=== PATIENT | female | born 1955 | race Caucasian/White ===

== ENCOUNTER 2016-07-10 11:55 | Emergency (ER) | payer BC, OTHER ==
[2016-07-10 13:27] VITALS: BP 125/66
--- NOTE | 2016-07-10 13:54 | UC ---
Skin Complaint HPI - HPI Summary HPI Summary: Patient comes today because she noticed a tick on her R leg behind the knee in the shower this morning. She states that it was not there when she went to bed last night. Her friends helped to remove the tick, but was only able to remove the body. The "head" is still intact. She denies any rash, body aches, fever or recent illness. - History of Current Complaint Time Seen by Provider: 07/10/16 13:11 Stated Complaint: SKIN COMPLAINT Skin Exposure Onset/Duration: Hours Ago - States that she noticed tick in shower this morning and could not have been on her for more than 14 hours before removing. Only was able to remove the body, and the head is still intact. Onset Severity: Mild Current Severity: None Pain Intensity: 0 Pain Scale Used: 0-10 Numeric - No pain Aggravating: Nothing Alleviating: Nothing Associated Signs & Symptoms: Positive: Negative Related History: Insect Bite/Sting - Tick bite - Allergy/Home Medications Allergies/Adverse Reactions: Allergies Allergy/AdvReac Type Severity Reaction Status Date / Time Morphine Allergy Hives Verified 07/10/16 13:28 Penicillins Allergy Swelling Verified 07/10/16 13:28 Of Face,Lips,& Throat Sulfa Antibiotics Allergy See Comment Verified 07/10/16 13:28 Azithromycin [From Zithromax] AdvReac GI Upset Verified 07/10/16 13:28 Oxycodone [From Percocet] AdvReac Vomiting Verified 07/10/16 13:28 seasonal Allergy Eyes Uncoded 07/10/16 13:28 Itchy/Swollen/Red/Watery Home Medications: Home Medications Vaginal Hormone Cream 1 applic VAGINAL SEE INSTRUCTIONS 07/10/16 [History Confirmed 07/10/16] Xildra 50 mg PO BID 07/10/16 [History Confirmed 07/10/16] Review of Systems Constitutional: Negative Skin: Other - Tick bite Eyes: Negative ENT: Negative Respiratory: Negative Cardiovascular: Negative Gastrointestinal: Negative Genitourinary: Negative Motor: Negative Neurovascular: Negative Musculoskeletal: Negative Neurological: Negative Psychological: Negative All Other Systems Reviewed And Are Negative: Yes PMH/Surg Hx/FS Hx/Imm Hx Respiratory History Of: Reports: Asthma - r/t allergies Psychological History Of: Reports: Anxiety - Surgical History Surgical History: Yes Surgery Procedure, Year, and Place: Hernia's x2. Breast Bx; 06/03/16 Ganglion cyst from right hand. Rotator cuff repair. Knee surgery. Vein surgery,. Tonsillectomy - Family History Known Family History: Positive: Other - hemophilia and dementia. - Social History Occupation: Employed Full-time Lives: With Family Alcohol Use: Rare Substance Use Type: None Smoking Status (MU): Never Smoked Tobacco Have You Smoked in the Last Year: No - Immunization History Hx Tetanus, Diphtheria Vaccination: No Vaccination Up to Date: No Physical Exam Triage Information Reviewed: Yes Appearance: Well-Appearing, No Pain Distress, Well-Nourished Vital Signs: Initial Vital Signs Temp 99.8 F 07/10/16 13:15 Pulse 75 07/10/16 13:15 Resp 22 07/10/16 13:15 BP 143/74 07/10/16 13:15 Pulse Ox 99 07/10/16 13:15 Vital Signs Reviewed: Yes Eye Exam: Normal Eyes: Positive: Conjunctiva Clear ENT Exam: Normal ENT: Positive: Normal ENT inspection, Hearing grossly normal, Pharynx normal, TMs normal Dental Exam: Normal Neck exam: Normal Respiratory Exam: Normal Respiratory: Positive: Chest non-tender, Lungs clear, Normal breath sounds, No respiratory distress, No accessory muscle use Cardiovascular Exam: Normal Cardiovascular: Positive: RRR, No Murmur Musculoskeletal Exam: Normal Neurological Exam: Normal Psychological Exam: Normal Skin Exam: Other - Tick bite behind right knee. Head is still intact with small , bloody drainage. No erythema or rash associated. Skin: Positive: significant lesion(s), Other - Small tick head intact behind right knee, partially removed via splinter forceps on exam, pt kyrie well.. Negative: rashes Course/Dx - Diagnoses Provider Diagnoses: tick bite. partial tick removal Discharge - Discharge Plan Condition: Stable Disposition: HOME Referrals: Dash Petty MD [Primary Care Provider] - If Needed Additional Instructions: TICK BITE: You have been bitten by a tick. Once the tick is removed, these "bites" usually cause no problems. Tick fever, tick paralysis, [place]end Spotted fever, and Lyme disease are uncommon -- but you should mention this tick bite to your doctor if you develop unusual symptoms in the next several weeks. If you develop any of the following, please see your physician promptly: (1) Fever, chills, or generalized malaise associated with a headache. (2) A red round area at the site of the bite (or elsewhere) (3) Joint pain, joint swelling or generalized weakness. (4) Redness, swelling, or drainage at the site of the bite. Check yourself, your children and your pets for ticks whenever you've been in an area where ticks live. To remove a tick, grasp it firmly with some tweezers or a string in a slipknot as close to its head as possible and pull it steadily. Ticks do not have a typical "head" attached to their body. There are mouth parts sticking out which they use to feed. If there are mouth parts left behind in the wound there is NO increased risk of Lyme infection; however, the chances of a bacterial skin infection (cellulitis) are higher. If mouth parts remain after tick removal, the best thing to do is apply warm soaks to the area 3-4 times per day to encourage the skin to expel the foreign material. FOLLOW-UP CARE: You should contact your private physician for follow-up care if you develop spreading redness near the site of the bite or on any other areas of the body. If you are unable to get a timely appointment, or if you are worsening, call us or return for re-evaluation.
== END 2016-07-10 14:09 | disposition home or self-care (01) ==
LOC: UCCORT 11:55
DX: S80.861A Insect bite (nonvenomous), right lower leg, initial encounter (principal); W57.XXXA Bitten or stung by nonvenomous insect and other nonvenomous arthropods, initial encounter; Y93.9 Activity, unspecified; Y92.9 Unspecified place or not applicable; Z88.5 Allergy status to narcotic agent; Z88.1 Allergy status to other antibiotic agents; Z88.0 Allergy status to penicillin; Z88.2 Allergy status to sulfonamides
CPT/HCPCS: 99211; G0463

== ENCOUNTER 2016-07-26 07:17 | Emergency (ER) | payer BC, OTHER ==
[2016-07-26 07:49] VITALS: BP 118/66
--- NOTE | 2016-07-26 08:02 | UC ---
Complaint Female HPI - HPI Summary HPI Summary: VAGINAL REDNESS, ITCHY AND SWELLING X 2 DAYS + FREQUENT HX OF VAGINAL YEASE + DYSURIA , NO FEVER, NO CHILLS - History Of Current Complaint Chief Complaint: UCGU Stated Complaint: PERSONAL Time Seen by Provider: 07/26/16 07:18 Hx Obtained From: Patient ?: No Onset/Duration: Gradual Onset, Lasting Days - 2, Still Present Timing: Constant Severity Initially: Moderate Severity Currently: Moderate Character: Burning Aggravating Factor(s): Urination Alleviating Factor(s): Nothing Associated Signs And Symptoms: Positive: Vaginal Discharge, Genital Swelling. Negative: Fever, Back Pain, Vaginal Bleeding/Discharge, Nausea, Vomiting(# Of Episodes =), Genital Blisters, Retained Foregin Body (Specify) - Allergies/Home Medications Allergies/Adverse Reactions: Allergies Allergy/AdvReac Type Severity Reaction Status Date / Time Morphine Allergy Hives Verified 07/26/16 07:36 Penicillins Allergy Swelling Verified 07/26/16 07:36 Of Face,Lips,& Throat Sulfa Antibiotics Allergy See Comment Verified 07/26/16 07:36 Azithromycin [From Zithromax] AdvReac GI Upset Verified 07/26/16 07:36 Oxycodone [From Percocet] AdvReac Vomiting Verified 07/26/16 07:36 seasonal Allergy Eyes Uncoded 07/26/16 07:36 Itchy/Swollen/Red/Watery PMH/Surg Hx/FS Hx/Imm Hx Respiratory History Of: Reports: Asthma - r/t allergies Psychological History Of: Reports: Anxiety - Surgical History Surgical History: Yes Surgery Procedure, Year, and Place: Hernia's x2. Breast Bx; 06/03/16 Ganglion cyst from right hand. Rotator cuff repair. Knee surgery. Vein surgery,. Tonsillectomy - Family History Known Family History: Positive: Other - hemophilia and dementia. - Social History Alcohol Use: Rare Substance Use Type: None Smoking Status (MU): Never Smoked Tobacco Have You Smoked in the Last Year: No - Immunization History Hx Tetanus, Diphtheria Vaccination: No Vaccination Up to Date: No Review of Systems Constitutional: Negative Skin: Negative Eyes: Negative ENT: Negative Respiratory: Negative Cardiovascular: Negative Genitourinary: Dysuria All Other Systems Reviewed And Are Negative: Yes Physical Exam Triage Information Reviewed: Yes Appearance: Well-Appearing, No Pain Distress, Well-Nourished Vital Signs: Initial Vital Signs Temp 98.5 F 07/26/16 07:23 Pulse 82 07/26/16 07:23 Resp 18 07/26/16 07:23 BP 118/66 07/26/16 07:23 Vital Signs Reviewed: Yes Eyes: Positive: Conjunctiva Clear ENT: Positive: Normal ENT inspection, Hearing grossly normal, Pharynx normal Neck exam: Normal Neck: Positive: Supple, Nontender, No Lymphadenopathy Respiratory: Positive: Chest non-tender, Lungs clear, Normal breath sounds Cardiovascular: Positive: RRR, No Murmur, Pulses Normal Abdominal Exam: Normal Abdomen Description: Positive: Nontender. Negative: CVA Tenderness (R), CVA Tenderness (L), Distended, Guarding Bowel Sounds: Positive: Present Skin Exam: Normal UC Physical Exam Vital Signs On Initial Exam: Initial Vitals Temp Pulse Resp BP 98.5 F 82 18 118/66 07/26/16 07:23 07/26/16 07:23 07/26/16 07:23 07/26/16 07:23 - Genitalia Exam Female Genitourinary: Other - PELVIC EXAM WAS DEFFERED Complaint Female Dx - Differential Dx/Diagnosis Provider Diagnoses: VAGINITIS Discharge - Discharge Plan Condition: Stable Disposition: HOME Prescriptions: Clotrimazole 1% VAGINAL CREAM* [Gyne-Lotrimin 1% VAGINAL CREAM*] 1 applic VAGINAL BEDTIME #1 tube Fluconazole 150 MG (NF) [Diflucan 150 mg (NF)] 150 mg PO ONCE #2 tab Patient Education Materials: Vulvovaginal Candidiasis (ED) Referrals: Dash Petty MD [Primary Care Provider] - 7 Days
== END 2016-07-26 08:06 | disposition home or self-care (01) ==
LOC: UCCORT 07:17
DX: N76.0 Acute vaginitis (principal); Z88.5 Allergy status to narcotic agent; Z88.0 Allergy status to penicillin; Z88.2 Allergy status to sulfonamides
CPT/HCPCS: 81003; 99212; G0463

== ENCOUNTER 2016-12-18 09:26 | Emergency (ER) | payer BC, OTHER ==
[2016-12-18] MEDS ORDERED: BSS OPTH.SOL* BTL ONE (09:46)
[2016-12-18] MEDS ORDERED: Fluorescein Sodium TOPICAL* 1 MG TEST ONE (09:46)
[2016-12-18] MEDS ORDERED: Tetracaine 0.5% OPTH.SOL 4 ML* 1 DROP BTL ONE (09:46)
[2016-12-18 09:50] VITALS: BP 107/68
--- NOTE | 2016-12-18 10:06 | UC ---
Eye Complaint HPI - HPI Summary HPI Summary: Treated several months ago by Dr. Maier with topical gel for diagnosis of opthalmic zoster. Had no rash at that time, nor fever or systemic symptoms. Resolved with a week of treatment. Yesterday developed similar symptoms with sharp eye pain and mild photophobia. Acuity is not affected with 20/13 vision. No associated headache or rash. - History of Current Complaint Chief Complaint: UCEye Stated Complaint: LEFT EYE PAIN Time Seen by Provider: 12/18/16 09:55 Hx Obtained From: Patient Onset/Duration: Gradual Onset, Lasting Days - 2 Timing: Constant Severity Initially: Moderate Severity Currently: Moderate Character: Sharp Aggravating Factor(s): Light Alleviating Factor(s): Darkness Associated Signs And Symptoms: Positive: Photophobia Related History: Diagnosed As: - opthalmic zoster - Risk Factors Penetrating Injury Risk Factor: Negative Globe Rupture Risk Factors: Negative Acute Glaucoma Risk Factors: Negative Optic Artery Occlusion Risk Factors: Negative - Allergies/Home Medications Allergies/Adverse Reactions: Allergies Allergy/AdvReac Type Severity Reaction Status Date / Time Morphine Allergy Hives Verified 12/18/16 09:34 Penicillins Allergy Swelling Verified 12/18/16 09:34 Of Face,Lips,& Throat Sulfa Antibiotics Allergy See Comment Verified 12/18/16 09:34 Azithromycin [From Zithromax] AdvReac GI Upset Verified 12/18/16 09:34 Oxycodone [From Percocet] AdvReac Vomiting Verified 12/18/16 09:34 seasonal Allergy Eyes Uncoded 12/18/16 09:34 Itchy/Swollen/Red/Watery Home Medications: Home Medications Aminocaproic Acid TAB* [Amicar TAB*] 1,000 mg PO SEE INSTRUCTIONS PRN 12/18/16 [ History Confirmed 12/18/16] Calcium W/ Vitamins D & K [Viactiv 500-500-40 mg-Unt-Mcg] 2 chw PO BEDTIME 12/18 [History Confirmed 12/18/16] Conjugated Estrogens VAG CM* [Premarin VAG CREAM*] 1 applic VAGINAL WE 12/18/16 [History Confirmed 12/18/16] Esomeprazole(NF) [NexIUM(NF)] 40 mg PO QAM 12/18/16 [History Confirmed 12/18/16] LevoCETirizine TAB (NF) [Xyzal TAB (NF)] 5 mg PO BEDTIME 12/18/16 [History Confirmed 12/18/16] Lifitegrast [Xiidra] 1 drop BOTH EYES BID 12/18/16 [History Confirmed 12/18/16] Lubiprostone 24 MCG CAP (NF) [Amitiza (NF)] 24 mcg PO BID 12/18/16 [History Confirmed 12/18/16] Montelukast Sodium TAB* [Singulair TAB*] 10 mg PO BEDTIME 12/18/16 [History Confirmed 12/18/16] Topiramate TAB(*) [Topamax 25 MG tab] 25 mg PO QAM 12/18/16 [History Confirmed 12/18/16] buPROPion TAB* [Wellbutrin TAB*] 150 mg PO QAM 12/18/16 [History Confirmed 12/18] PMH/Surg Hx/FS Hx/Imm Hx - Additional Past Medical History Additional PMH: history of occipital neuralgia Previously Healthy: Yes GI/ History: Gastroesophageal Reflux - Surgical History Surgical History: Yes Surgery Procedure, Year, and Place: Hernia's x2. Breast Bx; 06/03/16 Ganglion cyst from right hand. Rotator cuff repair. Knee surgery. Vein surgery,. Tonsillectomy - Family History Known Family History: Positive: Other - hemophilia and dementia. 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 Lives: With Family Alcohol Use: Rare Substance Use Type: None Smoking Status (MU): Never Smoked Tobacco Have You Smoked in the Last Year: No - Immunization History Hx Tetanus, Diphtheria Vaccination: No Vaccination Up to Date: No Review of Systems Constitutional: Negative Skin: Negative Eyes: Eye Redness, Photophobia ENT: Negative Respiratory: Negative Cardiovascular: Negative Gastrointestinal: Negative Genitourinary: Negative Motor: Negative Neurovascular: Negative Musculoskeletal: Negative Neurological: Negative Psychological: Negative All Other Systems Reviewed And Are Negative: Yes Physical Exam Triage Information Reviewed: Yes Appearance: Well-Appearing, Pain Distress - mild to moderate Vital Signs: Initial Vital Signs Temp 97.5 F 12/18/16 09:29 Pulse 68 12/18/16 09:29 Resp 16 12/18/16 09:29 BP 107/68 12/18/16 09:29 Pulse Ox 99 12/18/16 09:29 Eyes: Positive: Conjunctiva Inflamed - mild injection on the left. ISREAL. + photophobic on the left, but the pupil reacts well. No central injection. Full EOM. Lids normal., Other: - No fluoroscein uptake. ENT: Positive: Pharynx normal Dental Exam: Normal Neck: Positive: Supple, Nontender, No Lymphadenopathy Respiratory: Positive: Lungs clear, Normal breath sounds Cardiovascular: Positive: RRR, No Murmur Musculoskeletal Exam: Normal Neurological Exam: Normal Neurological: Positive: Alert Psychological Exam: Normal Skin Exam: Normal Eye Complaint Course/Dx - Course Course Of Treatment: antiviral gel given. Follow up with Dr. Maier tomorrow. - Differential Dx/Diagnosis Differential Diagnosis/HQI/PQRI: Corneal Abrasion, Foreign Body, Uveitis Provider Diagnoses: viral keratitis Discharge - Discharge Plan Condition: Stable Disposition: HOME Prescriptions: Ganciclovir OPHTH 0.15%(NF) [Zirgan(NF)] 0.15 % OP TID #1 gel Referrals: Dash Petty MD [Primary Care Provider] - Artis Maier OD [Doctor of Osteopathy] - Additional Instructions: Begin ganciclovir gel today as directed. It is very important that you have an assessment by Dr. Maier tomorrow or Monday--please call his office to arrange.
== END 2016-12-18 10:47 | disposition home or self-care (01) ==
LOC: UCCORT 09:26
DX: H16.8 Other keratitis (principal); K21.9 Gastro-esophageal reflux disease without esophagitis; Z88.5 Allergy status to narcotic agent; Z88.3 Allergy status to other anti-infective agents; Z88.0 Allergy status to penicillin; Z88.2 Allergy status to sulfonamides
CPT/HCPCS: 99212; A9270-GY; G0463

== ENCOUNTER → 2018-03-14 | Emergency (ER) | payer BC, OTHER ==
[~2018-03-14] MED LIST: Meclizine TAB* 12.5 MG PO ONE; NS 0.9% 1000 ML* 1,000 ML IV ONE
--- OUTSIDE RECORDS SUMMARY | 2018-03-14 13:20 | XMS REPORT ---
:1955 External Reference #:[id number] Author Organization [facility] Address [address] [address] Phone [phone] Care Team Providers Name Role Phone Dash Petty MD Care Team Information Plate Embosser Unavailable Payers Type Date Identification Numbers Payment Provider Subscriber Commercial Effective: Policy Number: [id number] [facility] Commercial Arpan Hogan 2017 PayID: [id number] [address] [address] [place] [phone] Medigap Part B Effective: 2017 Policy Number: [facility] Commercial Tyler Hogan [id number] PayID: [id number] [address] [address] [place] [phone] Problems Date Description Provider Status Onset: 12/26/2013 Allergic rhinitis Dash Petty MD Active Onset: 12/26/2013 Constipation Dash Petty MD Active Onset: 05/16/2013 H/O: coagulation defect Dash Petty MD Active Onset: 12/25/2012 Pure hypercholesterolemia Dash Petty MD Active Onset: 12/24/2012 FH: Diabetes mellitus Dash Petty MD Active Onset: 12/24/2012 Peptic reflux disease Dash Petty MD Active Onset: 12/08/2012 Irritable bowel syndrome Dash Petty MD Active Onset: 12/08/2012 Headache Dash Petty MD Active Onset: 11/12/2012 Anxiety state Latricia Quinn PA Active Onset: 12/19/2004 Family history of malignant neoplasm Anderson Ann MD Active of breast Onset: 12/19/2004 Allergic rhinitis due to pollen Active Onset: 12/29/2014 H/O: blood disorder Dash Petty MD Active Onset: 12/31/2015 Mild persistent asthma Dash Petty MD Active Onset: 12/31/2015 Trigeminal neuralgia Dash Petty MD Active Family History Date Family Member(s) Problem(s) Comments Children 2 Social History Type Date Description Comments Marital Status Occupation Teacher ETOH Use Denies alcohol use Smoking Patient has never smoked Exercise Type/Frequency Exercises regularly Allergies, Adverse Reactions, Alerts Date Description Reaction Status Severity Comments 05/21/2012 Penicillin active hives 08/11/2009 Morphine active 12/21/2004 Erythromycin active hives Medications Medication Date Status Form Strength Qnty SIG Indications Ordering Provider Albuterol 07/26/ Active Nebulizer 0.63mg/3ML 75ml use one R05 Digiovanna Sulfate 2018 vial in Dash nebulizer every 3 hours as needed for shortness of breath or wheezing Xyzal Allergy 01/06/ Active Tablets 5mg 30tabs 1 by mouth J30.9 Digiovanna 24HR 2016 every day Dash MD Premarin 10/09/ Active Cream 0.625mg/GM 30unit apply to N95.2 Simms, 2015 s affected Rickey, area 2-3x a DO week as needed Bupropion HCL 01/01/ Active Tablets 75mg 180tab take 2 F41.1 Digiovanna 2013 s tablets by Dash mouth every MD morning Montelukast / Active Tablets 10mg 30tabs 1 by mouth J45.30 Clarita, Sodium 0000 every night MD Cara at bedtime J30.9 Topiramate Active Tablets 25mg 1 by mouth once a R51 Bonifacio Mcgarry MD day G50.0 Combivent Active Aerosol 20-100mcg/Act 1 J45.30 Clarita, Respimat Inhalation MD Cara qid prn Cough/SOB Xiidra Active Solution 5% 1 drop in Unknown each eye twice a day Doxycycline Active Capsules 100mg 1 by mouth Unknown Hyclate twice a day Mupirocin Active Ointment 2% apply to Unknown affected area twice a day Dexilant Active Capsules 60mg [address] every day Nystatin 07/31/2017 Hx Suspension 629895Opfe/ML 2 5cc swish K12.1 Digiovanna, - 0 and swallow Sandy, 08/10/2017 0 four times SURVEY COORDINATOR m a day for l 10 days Benzonatate 07/24/2017 Hx Capsules 200mg 3 1 pill by R05 Jovanny, - 0 mouth 3 MD Dash 02/18/2018 c times a day a as needed p for cough s (swallow whole) Prednisone 07/22/2017 Hx Tablets 10mg 2 6 pills by J45.31 Jonathan, - 1 mouth x 1 MD Parris 07/31/2017 t dose today, a then b decrease s dose by 1 pill daily until gone. Doxycycline 07/22/2017 Hx Capsules 100mg 2 1 by mouth J45.31 Jonathan Hyclate - 0 twice daily MD Parris 07/31/2017 c x 10 days a p s Estrace 11/24/2016 Hx Cream 0.1mg/GM 4 Apply twice N95.2 Digiovanna, - 2 a week as MD Dash W/Applicator 07/21/2017 . instructed 5 0 0 g m Famciclovir 09/07/2016 Hx Tablets 500mg 2 take one Digiovanna, - 1 tablet by MD Dash 09/14/2016 t mouth three a times a day b for 7 days s Zostavax 12/31/2015 Hx Solution 32306Gha/0.65M 1 1 dose Digiovanna, - Rec L u MD Dash 01/10/2016 n i t s Diflucan 10/25/2014 Hx Tablets 150mg 1 1 by mouth 616.10 Rick, - t now Leo, 12/22/2014 a DO b s Doxycycline 09/13/2014 Hx Tablets 100mg 2 1 po bid x 461.9 Digiovanrenae, Hyclate - 0 10 days MD Dash 09/23/2014 t (w/ food a but not b milk) s Proair HFA 09/13/2014 Hx Aerosol 108(90Base) 1 2 puffs 466.0 Digiovanna , - mcg/Act u every 3 MD Dash 12/29/2014 n hours as i needed for t wheezing/SO s B Premarin 10/31/2012 Hx Cream 0.625mg/GM 4 apply to Simms, - 2 affected Rickey, DO 09/13/2014 . area twice 5 a week 0 0 G Ketoconazole 06/14/2011 Hx Shampoo 2% 1 use daily Digiovanna, - u as directed Dash Stacy 07/21/2017 n MD i t s Nexium Hx Packet 20mg 1 po qd K21.0 Aspen, Audi Valdovinos MD 07/21/2017 Levocetirizin Hx Tablets 5mg 1 PO qd J30.9 deja Otto - MD Cara Dihydrochlori 01/06/2017 de Montelukast Hx Tablets 10mg take 1 Clarita, Sodium - tablet by MD Cara 12/29/2014 mouth at bedtime Ketorolac Hx Solution 0.5% 1 drop OU Unknown Tromethamine - tid 01/06/2017 Sirgany Olopatadine Hx Solution 0.6% 1 - 2 Drops Clarita, HCL - To Each Eye MD Cara 12/29/2014 bid as Needed Amitiza Hx Capsules 24mcg take [address] Huntley capsule Mera 10/17/2017 twice a day Nii w/ food Meloxicam Hx Tablets 7.5mg take 1 or 2 M79.644 Lizabeth - tablets by David 01/06/2017 mouth once M.D. a day as needed for arthritis with food Proair HFA Hx Aerosol 108(90Base) 2 puffs J45.30 Clarita, - mcg/Act every 3 h MD Cara 07/21/2017 as needed for sob Symbicort Hx Aerosol 80-4.5mcg/Act use 2 puffs J45.30 Clarita, - twice a day MD Cara 07/31/2017 during spring and fall allergy seasons - rinse mouth after use. Immunizations CPT Code Status Date Vaccine Reaction Lot # Q2035 Given 01/30/2018 Afluria Imunization [facility] Q2035 Given 06/05/2017 Afluria Imunization 00272 Given 12/31/2015 Zoster (Zostavax) 11863 Given 01/06/2014 Afluria Or Fluvirin Flu Vac Intramuscular 77509 Given 01/06/2014 Afluria Or Fluvirin Flu Vac Intramuscular 99334 Given 05/16/2013 Afluria Or Fluvirin Flu Vac Intramuscular 64257 Given 12/24/2012 Tdap (Adacel) Ages 7 And Above Only 21373 Given 03/28/2003 Afluria Or Fluvirin Flu Vac Intramuscular 83598 Given 05/23/2002 Immunization Td 7 Yrs Or Older Q2035 Refused 01/24/2018 Afluria Imunization WILL GET AT PHARMACY Vital Signs Date Vital Result Comment 02/19/2018 Weight 148.00 lb Heart Rate 84 /min BP Systolic 128 mmHg BP Diastolic 82 mmHg Height 66.5 inches 5'6.50" BMI (Body Mass Index) 23.5 kg/m2 01/24/2018 Weight 149.00 lb Heart Rate 72 /min BP Systolic 120 mmHg BP Diastolic 80 mmHg Respiratory Rate 18 /min Height 66.5 inches 5'6.50" BMI (Body Mass Index) 23.7 kg/m2 10/17/2017 Weight 149.00 lb Heart Rate 72 /min BP Systolic 120 mmHg BP Diastolic 76 mmHg Respiratory Rate 18 /min Height 66.5 inches 5'6.50" BMI (Body Mass Index) 23.7 kg/m2 07/31/2017 Body Temperature 98.3 F Weight 146.00 lb Heart Rate 74 /min BP Systolic 118 mmHg BP Diastolic 62 mmHg Respiratory Rate 18 /min Height 66.5 inches 5'6.50" BMI (Body Mass Index) 23.2 kg/m2 07/24/2017 Body Temperature 99.0 F Weight 150.00 lb Heart Rate 84 /min BP Systolic 120 mmHg BP Diastolic 80 mmHg Respiratory Rate 18 /min Height 66.5 inches 5'6.50" O2 % BldC Oximetry 96 % Ra BMI (Body Mass Index) 23.8 kg/m2 07/22/2017 Body Temperature 98.8 F Weight 149.00 lb Heart Rate 86 /min BP Systolic 120 mmHg BP Diastolic 74 mmHg Respiratory Rate 18 /min Height 66.5 inches 5'6.50" O2 % BldC Oximetry 98 % ra BMI (Body Mass Index) 23.7 kg/m2 02/20/2017 Weight 150.00 lb Heart Rate 72 /min BP Systolic 124 mmHg BP Diastolic 74 mmHg Respiratory Rate 18 /min Height 66.5 inches 5'6.50" BMI (Body Mass Index) 23.8 kg/m2 01/06/2017 Weight 149.00 lb Heart Rate 72 /min BP Systolic 120 mmHg BP Diastolic 72 mmHg Respiratory Rate 18 /min Height 66.5 inches 5'6.50" BMI (Body Mass Index) 23.7 kg/m2 08/01/2016 Body Temperature 99.1 F Weight 148.00 lb Heart Rate 74 /min BP Systolic 122 mmHg BP Diastolic 74 mmHg Respiratory Rate 18 /min Height 66 inches 5'6" BMI (Body Mass Index) 23.9 kg/m2 04/06/2016 Weight 143.00 lb Heart Rate 74 /min BP Systolic 120 mmHg BP Diastolic 80 mmHg Respiratory Rate 18 /min Height 66 inches 5'6" BMI (Body Mass Index) 23.1 kg/m2 12/31/2015 Weight 145.00 lb Heart Rate 72 /min BP Systolic 120 mmHg BP Diastolic 72 mmHg Respiratory Rate 18 /min Height 66 inches 5'6" BMI (Body Mass Index) 23.4 kg/m2 12/25/2015 Weight 145.00 lb Heart Rate 71 /min BP Systolic 134 mmHg BP Diastolic 80 mmHg Respiratory Rate 18 /min Height 66.25 inches 5'6.25" (12/2015) BMI (Body Mass Index) 23.2 kg/m2 12/29/2014 Weight 151.00 lb Heart Rate 72 /min BP Systolic 118 mmHg BP Diastolic 64 mmHg Respiratory Rate 18 /min Height 66 inches 5'6" (12/2014) BMI (Body Mass Index) 24.4 kg/m2 12/22/2014 Weight 150.00 lb Heart Rate 72 /min BP Systolic 126 mmHg BP Diastolic 72 mmHg Respiratory Rate 18 /min Height 66.25 inches 5'6.25" 10/25/14 BMI (Body Mass Index) 24.0 kg/m2 10/25/2014 Weight 153.00 lb Heart Rate 76 /min BP Systolic 138 mmHg BP Diastolic 80 mmHg Respiratory Rate 18 /min Height 66.25 inches 10/25/14 BMI (Body Mass Index) 24.5 kg/m2 09/13/2014 Body Temperature 98.8 F Weight 153.12 lb Heart Rate 85 /min BP Systolic 128 mmHg BP Diastolic 74 mmHg Respiratory Rate 18 /min Height 66.25 inches 5'6.25" O2 % BldC Oximetry 99 % Ra BMI (Body Mass Index) 24.5 kg/m2 03/11/2014 Weight 152.00 lb Heart Rate 76 /min BP Systolic 118 mmHg BP Diastolic 80 mmHg Respiratory Rate 18 /min Height 66.25 inches 5'6.25" 8-201312/26/2013 Weight 152.00 lb 8-8 Heart Rate 76 /min BP Systolic 116 mmHg L/Reg BP Diastolic 84 mmHg L/Reg Respiratory Rate 16 /min Height 66.25 inches 5'6.25" 8-201312/20/2013 Weight 152.00 lb PRPT Heart Rate 72 /min BP Systolic 122 mmHg BP Diastolic 72 mmHg Respiratory Rate 18 /min Height 66 inches 5'6" 05/16/2013 Weight 152.00 lb Heart Rate 80 /min BP Systolic 126 mmHg BP Diastolic 78 mmHg Respiratory Rate 18 /min 04/01/2013 Heart Rate 76 /min BP Systolic 132 mmHg BP Diastolic 88 mmHg Respiratory Rate 18 /min 12/24/2012 Weight 150.38 lb Down 2# Heart Rate 74 /min BP Systolic 128 mmHg L/Reg BP Diastolic 88 mmHg L/Reg Respiratory Rate 17 /min Height 66 inches 5'6" 11/12/2012 Weight 152.00 lb Down 10# Heart Rate 68 /min BP Systolic 120 mmHg BP Diastolic 68 mmHg Respiratory Rate 18 /min Results Test Date Test Result H/L Range Note Manual Differential 02/15/2018 Neutrophils 68 % 35-75 1 Band 0 % 0-11 1 Lymphocytes 20 % 16-52 1 Monocytes 7 % 0-8 1 Eosinophils 2 % 0-5 1 Basophils 2 % 0-4 1 Metamyelocyte 1 % High 0-0 1 Abs Neutrophils# 3.8 K/ul 1.8-7.7 1 Abs Lymphocytes# 1.1 K/ul Low 1.2-4.8 1 Abs Monocytes# 0.4 K/ul 0.0-0.8 1 Abs Eosinophils# 0.1 K/ul 0.0-0.5 1 Abs Basophils# 0.1 K/ul 0.0-0.3 1 Abs BandCells# 0.0 K/ul 0.0-1.2 1 Abs Metamyelocytes# 0.1 K/ul High 0.0-0.0 1 Giant Platelets PRESENT None Seen 1 CBC with Auto Diff-fcmg 02/15/2018 WBC 5.6 K/uL 4.1-11.0 1 RBC 4.63 M/uL 4.00-5.40 1 Hemoglobin 13.3 gm/dL 12.0-16.0 1 Hematocrit 39.7 % 36.0-47.0 1 MCV 85.7 fL 80.0-97.0 1 MCH 28.7 pg 27.0-32.0 1 MCHC 33.5 g/dL 32.0-36.0 1 RDW 13.1 % 11.5-14.5 1 PLT Count 143 K/ul 140-400 1 MPV 10.6 FL 7.1-10.7 1 Basic (BMP) 02/15/2018 Sodium 142 mmol/L 135-146 1, 2 Potassium 4.0 mmol/L 3.5-5.2 1 Chloride# 105 mmol/L 97-110 1, 3 Carbon Dioxide 29 mmol/L 24-34 1 Glucose 98 mg/dL 70-105 1 BUN 19 mg/dL 6-26 1 Creatinine 0.8 mg/dL 0.5-1.4 1 Calcium 9.7 mg/dL 8.5-10.2 1 Non Nu Egfr >60 >60 1, 4 Nu Egfr >60 >60 1, 5 Anion Gap 8 mmol/L 5-15 1, 6 Laboratory test finding 02/15/2018 Vitamin B12 299 pg/mL 180-914 1 Vitamin D 25 Hydroxy 37 ng/mL 30-100 1, 7 Magnesium 2.2 mg/dL 1.5-2.7 1 Lipid Treatment 02/15/2018 Cholesterol 210 mg/dL High 50-199 1 Triglycerides 58 mg/dL 30-200 1 HDL 71 mg/dL 35-85 1, 8 Chol/ HDL Ratio 2.9 ratio Low 3.7-5.6 1 VLDL 12 mg/dL 2-29 1 LDL (Calc) 127 mg/dL High 20-99 1, 9 Alt 20 U/L 3-42 1 Ast 18 U/L 8-42 1 CBC with Auto Diff-fcmg 01/01/2018 WBC 6.7 K/uL 4.1-11.0 10 RBC 4.54 M/uL 4.00-5.40 10 Hemoglobin 13.0 gm/dL 12.0-16.0 10 Hematocrit 38.8 % 36.0-47.0 10 MCV 85.5 fL 80.0-97.0 10 MCH 28.7 pg 27.0-32.0 10 MCHC 33.5 g/dL 32.0-36.0 10 RDW 13.4 % 11.5-14.5 10 PLT Count 122 K/ul Low 140-400 10 MPV 11.2 FL High 7.1-10.7 10 Neutrophil 71.3 % 35.0-75.0 10 Lymphocyte 19.7 % 16.0-52.0 10 Monocyte 7.4 % 2.0-10.0 10 Eosinophil 0.9 % 0.0-5.0 10 Basophil 0.7 % 0.0-4.0 10 Abs Neutrophils 4.8 K/uL 2.1-8.0 10 Abs Lymphocytes 1.3 K/uL 0.8-5.5 10 Abs Monocytes 0.5 K/uL 0.1-1.0 10 Abs Eosinophils 0.1 K/uL 0.0-0.5 10 Abs Basophils 0.1 K/uL 0.0-0.3 10 Lipid Treatment 01/06/2017 Cholesterol 206 mg/dL High 50-199 11 Triglycerides 79 mg/dL 30-200 11 HDL 68 mg/dL 35-85 11, 12 Chol/ HDL Ratio 3.0 ratio Low 3.7-5.6 11 VLDL 16 mg/dL 2-29 11 LDL (Calc) 122 mg/dL High 20-99 11, 13 Alt 12 U/L 3-42 11 Ast 13 U/L 8-42 11 CBC With Auto Diff 01/06/2017 WBC 6.2 K/uL 4.1-11.0 11 RBC 4.50 M/uL 4.00-5.40 11 Hemoglobin 12.9 gm/dL 12.0-16.0 11 Hematocrit 39.6 % 36.0-47.0 11 MCV 87.9 fL 80.0-97.0 11 MCH 28.7 pg 27.0-32.0 11 MCHC 32.6 g/dL 32.0-36.0 11 RDW 13.3 % 11.5-14.5 11 PLT Count 121 K/ul Low 140-400 11 Neutrophil 65.9 % 35.0-75.0 11 Lymphocyte 23.4 % 16.0-52.0 11 Monocyte 7.6 % 2.0-10.0 11 Eosinophil 2.2 % 0.0-5.0 11 Basophil 0.9 % 0.0-4.0 11 Abs Neutrophils 4.1 K/uL 2.1-8.0 11 Abs Lymphocytes 1.5 K/uL 0.8-5.5 11 Abs Monocytes 0.5 K/uL 0.1-1.0 11 Abs Eosinophils 0.1 K/uL 0.0-0.5 11 Abs Basophils 0.1 K/uL 0.0-0.3 11 Basic (BMP) 01/06/2017 Sodium 142 mmol/L 135-146 11, 14 Potassium 4.4 mmol/L 3.5-5.2 11 Chloride# 104 mmol/L 97-110 11, 15 Carbon Dioxide 29 mmol/L 24-34 11 Glucose 82 mg/dL 70-105 11 BUN 23 mg/dL 6-26 11 Creatinine 0.9 mg/dL 0.5-1.4 11 Calcium 9.6 mg/dL 8.5-10.2 11 Non Nu Egfr >60 >60 11, 16 Nu Egfr >60 >60 11, 17 Anion Gap 9 mmol/L 7-16 11, 18 Laboratory test finding 01/06/2017 Magnesium 2.2 mg/dL 1.5-2.7 11 Vitamin B12 252 pg/mL 180-914 11 TSH 2.50 uIU/mL 0.35-4.94 11 Affirm 08/01/2016 Trichomonas Vaginalis Negative Negative Gardnerella Vaginalis Negative Negative Qiana Species Negative Negative Laboratory test finding 08/01/2016 Urine Culture Microbiology res <SEE 19 NOTE> Lipid 12/31/2015 Cholesterol 186 mg/dL 50-199 Triglycerides 58 mg/dL 30-200 HDL 62 mg/dL 35-85 20 Chol/ HDL Ratio 3.0 ratio Low 3.7-5.6 VLDL 12 mg/dL 2-29 LDL (Calc) 112 mg/dL High 20-99 21 CBC With Auto Diff 12/31/2015 WBC 6.2 K/uL 4.1-11.0 RBC 4.44 M/uL 4.00-5.40 Hemoglobin 12.8 gm/dL 12.0-16.0 Hematocrit 38.8 % 36.0-47.0 MCV 87.4 fL 80.0-97.0 MCH 28.9 pg 27.0-32.0 MCHC 33.0 g/dL 32.0-36.0 RDW 13.1 % 11.5-14.5 PLT Count 129 K/ul Low 140-400 Neutrophil 67.6 % 35.0-75.0 Lymphocyte 21.7 % 16.0-52.0 Monocyte 8.1 % 2.0-10.0 Eosinophil 1.5 % 0.0-5.0 Basophil 1.1 % 0.0-4.0 Abs Neutrophils 4.2 K/uL 2.1-8.0 Abs Lymphocytes 1.3 K/uL 0.8-5.5 Abs Monocytes 0.5 K/uL 0.1-1.0 Abs Eosinophils 0.1 K/uL 0.0-0.5 Abs Basophils 0.1 K/uL 0.0-0.3 Basic (BMP) 12/31/2015 Sodium 137 mmol/L 134-142 Potassium 4.1 mmol/L 3.5-5.2 Chloride 106 mmol/L 97-109 Carbon Dioxide 28 mmol/L 24-34 Glucose 94 mg/dL 70-105 BUN 24 mg/dL 6-26 Creatinine 0.8 mg/dL 0.5-1.4 Calcium 9.4 mg/dL 8.5-10.2 Anion Gap 7 mmol/L 6-14 Non Nu Egfr >60 >60 22 Nu Egfr >60 >60 23 Laboratory test finding 12/31/2015 TSH 1.91 uIU/mL 0.35-4.94 Laboratory test finding 12/25/2015 Pap Smear Thin Prep SEE NOTE 24, 25 Laboratory test finding 12/29/2014 Vit D,25 Hydroxy 45 ng/mL 31-100 Lipid Treatment 12/29/2014 Cholesterol 190 mg/dL 50-199 Triglycerides 54 mg/dL 30-200 HDL 54 mg/dL 35-85 26 Chol/ HDL Ratio 3.5 ratio Low 3.7-5.6 VLDL 11 mg/dL 2-29 LDL (Calc) 125 mg/dL High 20-99 27 Alt 12 U/L 3-42 Ast 12 U/L 8-42 Laboratory test finding 12/29/2014 Magnesium 2.1 mg/dL 1.5-2.7 Vitamin B12 480 pg/mL 180-914 Manual Differential 12/29/2014 Neutrophils 64 % 35-75 Lymphocytes 26 % 16-52 Atypical Lymphs 1 0-5 Monocytes 7 % 0-8 Eosinophils 1 % 0-5 Basophils 1 % 0-4 Platelet Estimate Normal Normal RBC Morphology Normal Normal Abs Neutrophils# 4.0 K/ul 1.8-7.7 Abs Lymphocytes# 1.6 K/ul 1.2-4.8 Abs Monocytes# 0.4 K/ul 0.0-0.8 Abs Eosinophils# 0.1 K/ul 0.0-0.5 Abs Basophils# 0.1 K/ul 0.0-0.3 Abs Atypical Lymphocytes# 0.1 K/ul 0.0-0.5 Laboratory test finding 12/29/2014 Hepatitis C Virus NONREACTIVE Nonreactive Antibody Basic (BMP) 12/29/2014 Sodium 138 mmol/L 134-142 Potassium 3.9 mmol/L 3.5-5.2 Chloride 105 mmol/L 97-109 Carbon Dioxide 27 mmol/L 24-34 Glucose 84 mg/dL 70-105 BUN 18 mg/dL 6-26 Creatinine 0.8 mg/dL 0.5-1.4 Calcium 9.2 mg/dL 8.5-10.2 Anion Gap 10 mmol/L 6-14 Non Nu Egfr >60 >60 28 Nu Egfr >60 >60 29 CBC With Auto Diff 12/29/2014 WBC 6.2 K/uL 4.1-11.0 RBC 4.36 M/uL 4.00-5.40 Hemoglobin 12.7 gm/dL 12.0-16.0 Hematocrit 38.3 % 36.0-47.0 MCV 87.8 fL 80.0-97.0 MCH 29.2 pg 27.0-32.0 MCHC 33.3 g/dL 32.0-36.0 RDW 13.2 % 11.5-14.5 PLT Count Platelets clumpe <SEE NOTE> K/ul 140-400 30 Laboratory test finding 03/13/2014 Antinuclear Abs Ifa Negative . 31 Rheumatoid Factor Screen Negative Negative Sedimentation Rate 14 mm/hr 0-30 Lipid Panel 12/27/2013 Chol/HDL Ratio 3.5 ratio Cholesterol 220.0 mg/dL High 50.0-199.0 HDL 62.0 mg/dL 29.0-86.0 LDL, Calculated 140.6 mg/dL High 20.0-129.0 Triglycerides 87.0 mg/dL 30.0-249.0 vLDL 17.4 ng/dL Laboratory test finding 12/27/2013 Alt 15.0 U/L 9.0-52.0 Ast 15.0 U/L 14.0-36.0 BUN 21.0 mg/dL High 7.0-18.0 BUN/Creat Ratio 26.3 ratio High 12.0-20.0 Calcium 9.7 mg/dL 8.7-10.5 Chloride 106.0 mmol/L 98.0-107.0 Co2 27.0 mmol/L 22.0-30.0 Creatinine-Serum 0.8 mg/dL 0.7-1.2 Glucose 80.0 mg/dL 75.0-110.0 Magnesium 2.4 High 1.7-2.3 Potasium 4.2 mmol/L 3.6-5.0 Sodium 143.0 mmil/L 137.0-145.0 eGFR 78.3 Laboratory test finding 12/24/2012 BUN 16.0 mg/dL 7.0-18.0 BUN/Creat Ratio 17.8 ratio 12.0-20.0 Calcium 9.6 mg/dL 8.7-10.5 Chloride 106.0 mmol/L 98.0-107.0 Cholesterol 205.0 mg/dL High 50.0-199.0 Co2 29.0 mmol/L 22.0-30.0 Creatinine-Serum 0.9 mg/dL 0.7-1.2 Glucose 105.0 mg/dL 75.0-110.0 HDL 54.0 mg/dL 29.0-86.0 Potasium 4.0 mmol/L 3.6-5.0 Sodium 141.0 mmil/L 137.0-145.0 eGFR 68.6 Laboratory test finding 12/24/2012 Magnesium 2.1 mg/dL 1.7-2.3 Laboratory test finding 11/12/2012 Cytology Pap See Note 32 1 early 03/01 Giant Platelets Present early 03/01 2 Updated reference range on new analyzer 3 Updated reference range on new analyzer 4 Concerning GFR Guidelines: Normal function or mild renal disease, if clinically at risk: >/=60 mL/min Moderately decreased: 30-59 Severely decreased: 15-29 Renal failure: <15 Glomerular Filtration Rate (GFR) is estimated based on the MDRD equation, which assumes a steady state for creatinine as recommended by the National Kidney Disease Education Program in conjunction with the National Institutes of Health and the National Kidney Foundation. Clinical conditions in which it may be necessary to measure GFR by using clearance methods include extremes of age and body size, severe malnutrition or obesity, diseases of skeletal muscle, paraplegia or quadriplegia, vegetarian diet, rapidly changing kidney function, and calculation of the dose of potentially toxic drugs that are excreted by the kidneys. 5 Concerning GFR Guidelines for Americans: Normal function or mild renal disease, if clinically at risk: >/=60 mL/min Moderately decreased: 30-59 Severely decreased: 15-29 Renal failure: <15 6 Updated Reference Range 7 Clinical Guidelines for recommended serum 25(OH)Vitamin D Deficient at less than 20 ng/mL Insufficient at 20 to <30 ng/mL Sufficient at 30-100 ng/mL Toxicity at greater than 100 ng/mL 8 Per NCEP ATP III Guidelines: Results lower than 40 mg/dL are suggestive of increased risk for coronary artery disease. Results > or=to 60 mg/dL are considered a negative risk factor. 9 Per NCEP ATP III Guidelines: Normal Population <130 Patients with medical conditions: CHD/DM Optimal: <100 Borderline high: 130-159 High: 160-189 Very high: >189 10 OUTSIDE ORDER Fax results to [phone] (FAXED) Fastin hours 11 12/29 12 Per NCEP ATP III Guidelines: Results lower than 40 mg/dL are suggestive of increased risk for coronary artery disease. Results > or=to 60 mg/dL are considered a negative risk factor. 13 Per NCEP ATP III Guidelines: Normal Population <130 Patients with medical conditions: CHD/DM Optimal: <100 Borderline high: 130-159 High: 160-189 Very high: >189 14 Updated reference range on new analyzer 15 Updated reference range on new analyzer 16 Concerning GFR Guidelines: Normal function or mild renal disease, if clinically at risk: >/=60 mL/min Moderately decreased: 30-59 Severely decreased: 15-29 Renal failure: <15 Glomerular Filtration Rate (GFR) is estimated based on the MDRD equation, which assumes a steady state for creatinine as recommended by the National Kidney Disease Education Program in conjunction with the National Institutes of Health and the National Kidney Foundation. Clinical conditions in which it may be necessary to measure GFR by using clearance methods include extremes of age and body size, severe malnutrition or obesity, diseases of skeletal muscle, paraplegia or quadriplegia, vegetarian diet, rapidly changing kidney function, and calculation of the dose of potentially toxic drugs that are excreted by the kidneys. 17 Concerning GFR Guidelines for Americans: Normal function or mild renal disease, if clinically at risk: >/=60 mL/min Moderately decreased: 30-59 Severely decreased: 15-29 Renal failure: <15 18 Updated reference range on new analyzer 19 Microbiology results SOURCE Clean Catch Midstream FINAL RESULT No growth 20 Per NCEP ATP III Guidelines: Results lower than 40 mg/dL are suggestive of increased risk for coronary artery disease. Results > or=to 60 mg/dL are considered a negative risk factor. 21 Per NCEP ATP III Guidelines: Normal Population <130 Patients with medical conditions: CHD/DM Optimal: <100 Borderline high: 130-159 High: 160-189 Very high: >189 22 Concerning GFR Guidelines: Normal function or mild renal disease, if clinically at risk: >/=60 mL/min Moderately decreased: 30-59 Severely decreased: 15-29 Renal failure: <15 Glomerular Filtration Rate (GFR) is estimated based on the MDRD equation, which assumes a steady state for creatinine as recommended by the National Kidney Disease Education Program in conjunction with the National Institutes of Health and the National Kidney Foundation. Clinical conditions in which it may be necessary to measure GFR by using clearance methods include extremes of age and body size, severe malnutrition or obesity, diseases of skeletal muscle, paraplegia or quadriplegia, vegetarian diet, rapidly changing kidney function, and calculation of the dose of potentially toxic drugs that are excreted by the kidneys. 23 Concerning GFR Guidelines for Americans: Normal function or mild renal disease, if clinically at risk: >/=60 mL/min Moderately decreased: 30-59 Severely decreased: 15-29 Renal failure: <15 24 Fastin hours 25 [facility]. [address] [place] [address] CYTOLOGY REPORT Source of Specimen(s): Thin Prep Vaginal / Cervical Pap Smear - One Vial Date of Last Menstrual Period: None Provided Menstrual History: Post-menopausal Other Clinical Conditions: Last Pap Smear: 2013 normal REFLEX TO HPV ASSAY IF RESULTS OF THIS PAP ARE ASCUS Specimen Adequacy Satisfactory for evaluation Presence of endocervical/transformation zone component General Categorization Negative for intraepithelial lesion or malignancy Interpretation NEGATIVE FOR INTRAEPITHELIAL LESION OR MALIGNANCY Reported: 12/29/2015 08:25 Electronically Signed Out By Linsey CHOWDHURY(ASCP) [facility] ICD9 Code: Z01.419 Unless otherwise specified, testing performed by [facility] [address] [place] [id number] 26 Per NCEP ATP III Guidelines: Results lower than 40 mg/dL are suggestive of increased risk for coronary artery disease. Results > or=to 60 mg/dL are considered a negative risk factor. 27 Per NCEP ATP III Guidelines: Normal Population <130 Patients with medical conditions: CHD/DM Optimal: <100 Borderline high: 130-159 High: 160-189 Very high: >189 28 Concerning GFR Guidelines: Normal function or mild renal disease, if clinically at risk: >/=60 mL/min Moderately decreased: 30-59 Severely decreased: 15-29 Renal failure: <15 Glomerular Filtration Rate (GFR) is estimated based on the MDRD equation, which assumes a steady state for creatinine as recommended by the National Kidney Disease Education Program in conjunction with the National Institutes of Health and the National Kidney Foundation. Clinical conditions in which it may be necessary to measure GFR by using clearance methods include extremes of age and body size, severe malnutrition or obesity, diseases of skeletal muscle, paraplegia or quadriplegia, vegetarian diet, rapidly changing kidney function, and calculation of the dose of potentially toxic drugs that are excreted by the kidneys. 29 Concerning GFR Guidelines for Americans: Normal function or mild renal disease, if clinically at risk: >/=60 mL/min Moderately decreased: 30-59 Severely decreased: 15-29 Renal failure: <15 30 Platelets clumped but appear normal in number. 31 Negative <1:80 Borderline 1:80 Positive >1:80 Performed at: RN - [facility] [address] [id number] Garment Sewer Hand: Sima Angela MD, Phone: [phone] [facility] [address] [place] [address], [address] [place] [address] CYTOLOGY REPORT Name: Arpan Hogan Accession # : [id number] : 1955 (Age: 56) Sex: F Location: [facility] Med Rec. # [id number] Date Collected: 11/12/2012 Billing #: [id number] Date Received: 11/12/2012 Alternate #: [id number] Requisition # [id number] Physician(s): LATRICIA SEALS Source of Specimen: ENDOCERVICAL/ECTOCERVICAL THIN PREP Clinical Information: Date of Last Menstrual Period: 2008 Menstrual History: Post menopausal Specimen Adequacy: SATISFACTORY FOR EVALUATION. NO ENDOCERVICAL/TRANSFORMATION ZONE. General Categorization: NEGATIVE FOR INTRAEPITHELIAL LESION OR MALIGNANCY. dcl Electronic Signature TRENTON Keyes (ASCP) Reported: 11/14/[address] [facility] ICD-9 Code(s) V72.31 Procedures Date CPT Code Description Status Comment 11/22/2017 Colonoscopy Completed 2007: RADHA CAZARES, REDO 10 Y - Colonoscopy 11/29: DR GARCIA - RADHA, REDO 10 Y CCD: Endoscopy/Colonoscopy 07/24/2017 31047 Measure Blood Oxygen Level Completed Single Determination 07/22/2017 43798 Measure Blood Oxygen Level Completed Single Determination 02/28/2017 Mammogram Completed 12/27- normal, density C 01/28: NORMAL, DENSITY D Mammography Document: 02/28/17 - Digital Mammography Screening 02/20/2017 42205 Screening Hearing Test Completed 04/28/2016 74646 Bone Density Study (Dexa) Completed Axial Skeleton (Hips,Pelvis,Spine) 04/28/2016 Bone Mineral Density Test Completed 12/30/2014 Mammogram Completed 09/13/2014 26634 Measure Blood Oxygen Level Completed Single Determination 12/20/2013 69691 Mammography Unilateral Completed Encounters Type Date Location Provider CPT E/M Dx Office Visit 01/24/2018 8:15a [place] [address] Z00.00 Z86.2 E78.00 K58.9 J45.30 J30.9 K59.00 Z79.899 D69.6 Office Visit 10/17/2017 8:00a [place] [address] D48.5 M79.671 Office Visit 07/31/2017 10:30a [facility] Sandy Petty, SERGIO [address] K12.1 Office Visit 07/24/2017 3:30p [facility] [place] [address] R05 Office Visit 07/22/2017 9:15a [facility] [place] [address] J45.31 Office Visit 02/20/2017 3:30p [facility] Sandy Petty, SURVEY COORDINATOR 54780 Z01.419 Z12.31 Z68.23 Office Visit 01/06/2017 8:00a [facility] [place] [address] E78.00 K21.0 J30.9 J45.30 K58.9 Z86.2 Z83.3 Z80.3 F41.1 N95.2 R51 Office Visit 08/01/2016 2:00p [facility] Sandy Petty, [place] 13006 N76.0 Office Visit 04/06/2016 10:30a [facility] [place] [address] M67.441 M79.644 Office Visit 12/31/2015 8:30a [facility] [place] [address] E78.0 Z86.2 K21.0 J30.9 J45.30 Z83.3 F41.1 G50.0 M19.049 Office Visit 12/25/2015 10:30a [facility] [place] [address] Z01.419 Z78.0 F43.0 Office Visit 12/29/2014 8:15a [facility] [place] [address] 272.0 564.1 530.11 V12.3 477.9 V73.89 V58.69 V49.81 V18.0 Office Visit 12/22/2014 10:30a [facility] [place] [address] V72.31 627.9 Office Visit 10/25/2014 9:00a [facility] [place] [address] 616.10 Office Visit 09/13/2014 10:45a [facility] Dash Petty MD [id number] 465.9 461.9 466.0 Plan of Care Future Appointment(s):01/25/2019 8:15 am - Dash Petty MD at [facility]2017 - Sandy Petty, SERGIOM25.561 Pain in RIGHT kneeNew Xrays:Knee, Complete,, RTComments:Continue moist heat. Continue to walk with cane to decrease weight bearingIncrease Aleve to 2 twice daily.Will refer to Dr. Connell for further evaluation. Continue use of supportive brace Add Tylenol 1000mg every 4-6 hours as needed for pain.Hold PT exercises for now.Referral:Ryley Izquierdo DR,Follow up:PRN pending ortho evaluation
--- NOTE | 2018-03-14 13:50 | ED ---
Dizziness - HPI Summary HPI Summary: Pt. is a 62 y.o female who presents to the ER for dizziness that started this morning when she awoke. Pt. states she felt like the room was spinning and felt off balance. Pt. initially went to the [facility] and workup was obtained including labs and head ct. Workup unremarkable. ER doctor was concerned with pt.'s ongoing dizziness and referred her [place] [facility] [place]. Pt. states she is feeling a bit better. She denies fever, chills, CP, SOB, abd. pain , V/D, urinary sxs. She does see Dr. Mcgarry for occipital neuralgia. Symptoms are moderate in severity. No current modifying factors. - History Of Current Complaint Chief Complaint: EDDizziness Stated Complaint: VERTIGO Time Seen by Provider: 03/14/18 13:27 Hx Obtained From: Patient - Allergies/Home Medications Allergies/Adverse Reactions: Allergies Allergy/AdvReac Type Severity Reaction Status Date / Time MS Morphine [Morphine] Allergy Hives Verified 12/18/16 09:34 MS Penicillins [Penicillins] Allergy Swelling Verified 12/18/16 09:34 Of Face,Lips,& Throat MS Sulfa Antibiotics Allergy See Comment Verified 12/18/16 09:34 [Sulfa Antibiotics] MS Azithromycin AdvReac GI Upset Verified 12/18/16 09:34 [From Zithromax] MS Oxycodone [From Percocet] AdvReac Vomiting Verified 12/18/16 09:34 seasonal Allergy Eyes Uncoded 12/18/16 09:34 Itchy/Swollen/Red/Watery PMH/Surg Hx/FS Hx/Imm Hx Previously Healthy: Yes Endocrine/Hematology History: Reports: Hx Blood Disorders - brothers are hemophiliacs, 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 Breast Bx; 06/03/16 Ganglion cyst from right hand. Rotator cuff repair. Knee surgery. Vein surgery,. Tonsillectomy Infectious Disease History: No Infectious Disease History: Reports: Hx Shingles Denies: Hx Clostridium Difficile, Hx Hepatitis, Hx Human Immunodeficiency Virus (HIV), Hx of Known/Suspected MRSA, Hx Tuberculosis, Hx Known/Suspected VRE , Hx Known/Suspected VRSA, History Other Infectious Disease, Traveled Outside the [place] in Last 30 Days - Family History Known Family History: Positive: Other - hemophilia and dementia. - Social History Occupation: Employed Full-time Lives: With Family Alcohol Use: Rare Substance Use Type: Reports: None Hx Tobacco Use: No Smoking Status (MU): Never Smoked Tobacco Have You Smoked in the Last Year: No Review of Systems Constitutional: Negative Negative: Fever, Chills Eyes: Negative ENT: Negative Cardiovascular: Negative Respiratory: Negative Gastrointestinal: Negative Genitourinary: Negative Musculoskeletal: Negative Skin: Negative Neurological: Other - dizziness All Other Systems Reviewed And Are Negative: Yes Physical Exam Triage Information Reviewed: Yes Vital Signs On Initial Exam: Initial Vitals Temp Pulse Resp BP Pulse Ox 98.5 F 64 16 129/75 97 03/14/18 12:49 03/14/18 12:49 03/14/18 12:49 03/14/18 12:49 03/14/18 12:49 Vital Signs Reviewed: Yes Appearance: Positive: Well-Appearing - Pt. sitting up in bed in NAD. Very talkative. present. Skin: Positive: Warm, Dry Head/Face: Positive: Normal Head/Face Inspection Eyes: Positive: Normal, EOMI, BRIDGET, Conjunctiva Clear Neck: Positive: Supple, Nontender. Negative: Nuchal Rigidity Respiratory/Lung Sounds: Positive: Clear to Auscultation, Breath Sounds Present Cardiovascular: Positive: Normal, RRR Musculoskeletal: Positive: Normal, Strength/ROM Intact Neurological: Positive: Normal, Sensory/Motor Intact, Alert, Oriented to Person Place, Time, CN Intact II-III, Heel to Toe - normal, Finger to Nose - normal, Facial Symmetry, Speech Normal. Negative: Cerebellar Dysfunction, Disoriented, Facial Droop, Slurred Speech, Pronator Drift Present Diagnostics - Vital Signs Vital Signs Temp Pulse Resp BP Pulse Ox 03/14/18 12:49 98.5 F 64 16 129/75 97 - Laboratory Lab Statement: Any lab studies that have been ordered have been reviewed, and results considered in the medical decision making process. Discharge - Discharge Plan Condition: Good Disposition: HOME Prescriptions: Meclizine TAB* [Antivert 12.5 TAB*] 25 mg PO TID PRN #20 tab PRN Reason: Dizziness Patient Education Materials: Vertigo (ED) Referrals: Dash Petty MD [Primary Care Provider] - Bonifacio Mcgarry MD [Medical Doctor] - Additional Instructions: Call Dr. Mcgarry's office tomorrow for an appointment Meclize as directed Return to ER if symptoms change or worsen - Billing Disposition and Condition Condition: GOOD Disposition: Home
[2018-03-14 18:02] VITALS: BP 118/67
--- NOTE | 2018-03-14 23:22 | CONS ---
NEUROLOGY CONSULTATION NOTE: DATE OF CONSULT: 03/14/18 CONSULTING PROVIDER: BOZENA Bentley REASON FOR CONSULT: Vertigo. CHIEF COMPLAINT: Spinning sensation. HISTORY OF PRESENT ILLNESS: Mrs. Hogan is a 62-year-old female with history of occipital neuralgia for which she takes topiramate, irritable bowel syndrome who presented to [place] for symptoms of vertigo that started today. The patient was in normal state of health last night. She woke up at 5 a.m. and noticed she was staggering when walking. She ran into an armor. She felt extremely off balance and vertiginous. She felt the "world was spinning." This lasted for approximately a few seconds. When sitting down and staring into 1 object and keeping the head in a primary position, the symptoms resolved. However, she tried picking up items off the floor to put in a hamper , she felt dizzy again. This lasted another 10 seconds. She also started walking around the house when she felt slightly dizzy and fell on a nearby furniture. She denied any head trauma. She denies any loss of consciousness. She denied any seizure-like activity. She also is complaining of headaches across the base of the head with slight stiffness around the left shoulder region. She had an upper respiratory illness one week ago where she experienced sore throat for a day but that resolved. She denied any acute hearing loss. She denied tinnitus. The patient has a history of occipital neuralgia and has received occipital nerve blocks in the past with complete resolution of her symptoms. She does complain of an ache around the posterior side of the head that is nonradiating that is currently 3/10 in severity for which she has had in the past. She usually takes an extra dose of Topamax and her symptoms resolve. She has not had anything to eat or drink since 5 a.m. today. The patient had 1 episode of rectal bleeding that was bright red last Monday. This was an isolated incident. She recently had a colonoscopy this last summer that was negative. She contacted her GI doctor, who recommended she continues to monitor. 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 Requires Amicar prior to any invasive procedures. PAST SURGICAL HISTORY: Recent colonoscopy this summer. CURRENT MEDICATION LIST: Include: 1. Wellbutrin 150 mg p.o. in the morning. 2. Topamax 25 mg in the morning. 3. Singulair 10 mg p.o. at bedtime. 4. Amitiza 24 mcg p.o. b.i.d. 5. Levocetirizine 5 mg p.o. at bedtime. 6. Nexium 40 mg p.o. in the morning. 7. Aminocaproic acid 1000 mg p.o. as needed. ALLERGIES: Include PENICILLIN, MORPHINE, and ERYTHROMYCIN. FAMILY HISTORY: She has no family history of stroke or seizures. Her brother due to a bleeding disorder. She takes care of both parents. Her mother has Alzheimer's dementia and her dad has dementia of nonspecific type. SOCIAL HISTORY: She is a retired teacher. She is taking care of her parents. She denied any tobacco or alcohol use. She lives with her . REVIEW OF SYSTEMS: A 14-point review of systems was obtained and otherwise negative except for as mentioned in the HPI. PHYSICAL EXAMINATION: Vitals: Temperature 98.3, pulse rate 71, respiratory rate of 20, oxygen saturation 96% on room air, blood pressure 115/74. General: Well- appearing, well nourished, well-developed female, in no acute distress. She is alert and cooperative. She appears slightly older than stated age. Head is normocephalic, atraumatic. Eyes: Conjunctivae/corneas are clear. Neck is supple and symmetrical with no carotid bruits. Lungs are clear to auscultation bilaterally. Cardiovascular: Regular rate and rhythm with normal S1, S2. Extremities: Normal range of motion with no cyanosis, hammertoes, high arches. Skin: No skin lesions or laceration. Psych: Affect is broad and normal mood. She is easy to establish rapport. Spurling sign negative bilaterally. Mild tenderness near the left occipital notch region. Neurological Examination: Mental Status: Awake, alert, oriented to person, place, time, general circumstances. Speech and language including expression, naming, and repetition were assessed and found to be normal. Cranial Nerves: Normal confrontation testing bilaterally. There was no nystagmus. No ptosis. Sensation is intact in the forehead, cheeks, and jaw region bilaterally. There is no facial droop. She is able to hear throughout the history process. Symmetrical palatal elevation. Tongue is symmetric and midline with no atrophy or fasciculation. It is important to note that HINT examination was completed and the HEENT exam was abnormal towards the left side. This is just more of a peripheral component to her examination. Motor Exam: No abnormal movements. No pronator drift. Normal bulk and tone throughout. 5/5 strength in the upper and lower extremities, distal and proximal muscle groups. Reflexes (R/left): Brachioradialis 2/2, biceps 2/2, triceps 2/2, patella 2/2, ankle 1/1, plantar flexor/flexor. Sensation is intact to light touch and pinprick. Vibratory sensation is 13 seconds on the right and 15 seconds on the left great toe. Normal proprioception at the great toes bilaterally. Coordination: Normal [id number] and rapid alternating movement. Gait and station narrow based, normal stance and gait. No ataxia. Labs, imaging, another diagnostic testing: CT head without contrast completed on 03/14/18 showed no evidence of acute intracranial abnormality or intracranial hemorrhage. ASSESSMENT AND RECOMMENDATIONS: Mrs. Arpan Hogan is a 62-year-old healthy female who has history of occipital neuralgia who presents with symptoms of intermittent short lasting vertigo. Since being hospitalized, she had transient episodes of vertigo that last for a few seconds mostly with quick head movements. Given her benign neurological examination that showed no focal neurological deficit except for a positive HINT examination towards the left side, I suspect that the patient has a peripheral cause to her vertigo. The likely diagnosis is BPPV given the transient nature of the symptoms. At this point, I recommend starting her on IV fluids, at least give her a bolus of normal saline 500 cc x1 and advance her diet as tolerated. Follow-up with Dr. Mcgarry. We discussed the possibility of giving her a dose of Tylenol to relieve some of her headaches as well as the shoulder tension, but she prefers not to take any medication at this time. I also encouraged her to come back to the emergency room if she has any new neurological symptoms such new headaches, visual disturbance, slurred speech, focal weakness, or paresthesias. She verbalized understanding. TIME SPENT: I spent a total of 50 minutes and greater than 50% was spent directly reviewing medical chart, obtaining history, examining the patient, education, counseling, and discussing the treatment plan as mentioned above. I also discussed the case with the primary provider, Mason Ubaldo Zee. [id number]/[facility] #: [id number] [facility] HOSPITALHenrique
== END | disposition home or self-care (01) ==
LOC: ED 12:33
DX: R42 Dizziness and giddiness (principal); Z14.01 Asymptomatic hemophilia A carrier; K58.9 Irritable bowel syndrome, unspecified; F41.9 Anxiety disorder, unspecified; Z88.5 Allergy status to narcotic agent; Z88.0 Allergy status to penicillin
CPT/HCPCS: 96360; 99282; A9270-GY